=== PATIENT | male | born 1970 | race Caucasian/White ===

== ENCOUNTER 2019-06-05 13:18 | Emergency (ER) | payer OTHER, MEDICAID ==
--- NOTE | 2019-06-05 13:27 | ER Document Report ---
ED Medical Screen (RME) - General Stated Complaint: LEFT ARM INJURY Time Seen by Provider: 06/05/19 13:20 Mode of Arrival: Medic Information source: Patient Notes: 48-year-old male presents emergency department with laceration to his left forearm. Reports he was in front of a commercial push lawnmower when the belt flew off and hit him in the arm. Pressure dressing in place. EMS reports pretty deep laceration. Patient reports tetanus up-to-date. Patient received 75 mcg fentanyl without relief of symptoms. Reports it took the edge off of the pain. Patient reports he has high tolerance for pain. Takes methadone. Patient is right-handed I have greeted and performed a rapid initial assessment of this patient. A comprehensive ED assessment and evaluation of the patient, analysis of test results and completion of the medical decision making process will be conducted by additional ED providers. Dictation of this chart was performed using voice recognition software; therefore, there may be some unintended grammatical errors. - Related Data Allergies/Adverse Reactions: No Known Allergies Allergy (Unverified 06/05/19 13:21)
[2019-06-05] MEDS ORDERED: LIDOCAINE 1%/EPINEPHRINE INJ 20 ML VIAL INJ ONE (15:00)
--- NOTE | 2019-06-05 15:22 | ER Document Report ---
ED Wound - General Chief Complaint: Laceration Stated Complaint: LEFT ARM INJURY Time Seen by Provider: 06/05/19 13:20 Mode of Arrival: Medic Notes: 48-year-old [id number] male male presents to the emergency department with a laceration on his left lateral forearm sustained by of the belt of a low riding lawnmower just prior to arrival. Last tetanus 1 year ago. Patient flex and extend all of his fingers, and can flex and extend his forearm, patient is complaining of some mild tingling in his fourth and fifth digits of his left hand. TRAVEL OUTSIDE OF THE [place] IN LAST 30 DAYS: No - Related Data Allergies/Adverse Reactions: No Known Allergies Allergy (Unverified 06/05/19 13:21) Past Medical History - General Information source: Patient - Social History Smoking Status: Current Every Day Smoker Chew tobacco use (# tins/day): No Frequency of alcohol use: None Drug Abuse: Other Family History: None Patient has suicidal ideation: No Patient has homicidal ideation: No Review of Systems - Review of Systems Constitutional: No symptoms reported EENT: No symptoms reported Cardiovascular: No symptoms reported Respiratory: No symptoms reported Gastrointestinal: No symptoms reported Genitourinary: No symptoms reported Male Genitourinary: No symptoms reported Musculoskeletal: See HPI Skin: See HPI Hematologic/Lymphatic: No symptoms reported Neurological/Psychological: No symptoms reported Physical Exam - Vital signs Vitals: Temp Pulse Resp BP Pulse Ox 98.8 F 95 16 119/72 96 06/05/19 17:07 06/05/19 17:07 06/05/19 17:07 06/05/19 17:07 06/05/19 17:07 - Notes Notes: PHYSICAL EXAMINATION: Reviewed vital signs and charting by RN GENERAL: Alert, interacts well. No acute distress. HEAD: Normocephalic, atraumatic. EYES: Pupils equal and round. Extraocular movements intact. ENT: Oral mucosa moist, tongue midline. NECK: Full range of motion. Trachea midline. LUNGS: Clear to auscultation bilaterally, no wheezes, rales, or rhonchi. No respiratory distress. HEART: Regular rate and rhythm. No murmur ABDOMEN: soft, non-tender. No distention. Bowel sounds present EXTREMITIES: Moves all 4 extremities spontaneously. No edema, No cyanosis. PSYCH: Normal affect, normal mood. SKIN: Warm, dry, normal turgor. Large linear laceration approximately 4 inches long over the anterior lateral aspect of the left forearm just distal to the elbow that extends into the subcutaneous layer, a very small 3 mm area of the muscle fascia was damaged but musculature is all intact, no evidence of any tendon damage and patient has full active range of motion and strength to resistance of flexion and extension of the wrist, elbow, and all of his fingers and thumb sensation grossly intact to light touch. Course - Re-evaluation Re-evalutation: 06/05/19 19:09 Overall well-appearing, normal distal neurovascular exam with a normal motor exam. Primary closure was performed using 3 vertical mattress sutures and simple interrupted sutures. There was one large laceration approximately 4 to 5 inches long and another small at approximately 1.5 inches long distal to it. Tetanus is up-to-date. Patient tolerated procedure well. Because it was a dirty wound and such a large laceration I am going to put him antibiotic prophylaxis. I gave patient a short course of pain medication. I clearly explained the risks as patient takes methadone but he was okay with it and his methadone clinic is in [place] so we will not be taking it. I clarified and he said he was okay and was requesting it. He understands the risks. At this time patient is stable for discharge. - Vital Signs Vital signs: Temp Pulse Resp BP Pulse Ox 98.8 F 95 16 119/72 96 06/05/19 17:07 06/05/19 17:07 06/05/19 17:07 06/05/19 17:07 06/05/19 17:07 Discharge - Discharge Clinical Impression: Laceration Condition: Good Disposition: HOME, SELF-CARE Instructions: Antibiotic Ointment Protection ([facility]), Laceration Care ([facility]), Soap Cleansing ([facility]) Additional Instructions: Please return to your primary doctor, the ED, or an urgent care in 7 days for suture removal. Return immediately if you develop spreading redness around the wound, pus from the wound, worsening pain, or a fever of >101. Keep the area clean and dry. Wash gently with soap and water twice daily and cover with antibiotic ointment. Prescriptions: Oxycodone HCl [Oxy-Ir 5 mg Tablet] 5 mg PO Q6HP PRN #7 tab PRN Reason: Cephalexin Monohydrate [Keflex 500 mg Capsule] 500 mg PO QID #20 capsule
[2019-06-05] MEDS ORDERED: FENTANYL CITRATE INJ/PF 100 MCG/2 ML AMPUL IV ONE (15:25)
[2019-06-05] MEDS ORDERED: OXYCODONE HCL IR 5 MG TABLET PO ONE (16:46)
[2019-06-05 17:07] VITALS: BP 119/72
== END 2019-06-05 17:07 | disposition home or self-care (01) ==
LOC: ER 13:18
DX: S51.812A Laceration without foreign body of left forearm, initial encounter (principal); W45.8XXA Other foreign body or object entering through skin, initial encounter; F17.200 Nicotine dependence, unspecified, uncomplicated; R20.2 Paresthesia of skin
CPT/HCPCS: 99283; 96374; 12035; J3010; J3490

== ENCOUNTER 2019-06-12 09:31 | Emergency (ER) | payer OTHER, MEDICAID ==
--- NOTE | 2019-06-12 09:57 | ER Document Report ---
ED Medical Screen (RME) - General Chief Complaint: Wound Recheck Stated Complaint: SUTURE REMOVAL Time Seen by Provider: 06/12/19 09:48 Mode of Arrival: Ambulatory Information source: Patient Notes: Patient presents for suture removal to left forearm. Patient had stitches placed a week ago. Patient states that a lawnmower belt broke cutting his left forearm. Patient states that multiple pieces of rubber were removed from the laceration and he was placed on Keflex. Patient reports finishing the antibiotic 2 days ago. Patient complains of continued severe pain with swelling. I have greeted and performed a rapid initial assessment of this patient. A comprehensive ED assessment and evaluation of the patient, analysis of test results and completion of the medical decision making process will be conducted by additional ED providers. TRAVEL OUTSIDE OF THE [place] IN LAST 30 DAYS: No - Related Data Allergies/Adverse Reactions: No Known Allergies Allergy (Verified 06/12/19 09:41) Physical Exam - Vital signs Vitals: Temp Pulse Resp BP Pulse Ox 97.6 F 78 16 129/85 H 100 06/12/19 09:33 06/12/19 09:33 06/12/19 09:33 06/12/19 09:33 06/12/19 09:33 - General Notes: Sutured laceration to dorsal left forearm, proximal area of wound swollen, indurated and tender Course - Vital Signs Vital signs: Temp Pulse Resp BP Pulse Ox 97.6 F 78 16 129/85 H 100 06/12/19 09:33 06/12/19 09:33 06/12/19 09:33 06/12/19 09:33 06/12/19 09:33
--- NOTE | 2019-06-12 10:37 | RADIOLOGY REPORT (SQ) ---
EXAM DESCRIPTION: FOREARM LEFT COMPLETED DATE/TIME: 06/12/2019 10:28 am REASON FOR STUDY: L FA lac, swelling, ?FB COMPARISON: None. NUMBER OF VIEWS: Two views. TECHNIQUE: Two radiographic images acquired of the left forearm, including elbow and wrist in at [facility] one projection. LIMITATIONS: None. FINDINGS: MINERALIZATION: Normal. BONES: No acute fracture. No worrisome bone lesions. SOFT TISSUES: No obvious swelling or foreign body. OTHER: No other significant finding. IMPRESSION: NEGATIVE STUDY OF THE LEFT FOREARM. NO RADIOGRAPHIC EVIDENCE OF ACUTE INJURY. TECHNICAL DOCUMENTATION: JOB ID: [id number] [employer]- All Rights Reserved Reading location - IP/workstation name: [email or web address]
--- NOTE | 2019-06-12 12:57 | ER Document Report ---
ED General - General Chief Complaint: Wound Recheck Stated Complaint: SUTURE REMOVAL Time Seen by Provider: 06/12/19 09:48 Mode of Arrival: Ambulatory Notes: 48-year-old male presents emergency department for suture removal from his left forearm. Sutures were placed on the 22nd. Patient complains of persistent numbness to the dorsal aspect of his left forearm, denies any new numbness, denies any weakness, denies any discharge. Patient is concerned by some swelling underneath the stitches. Is afraid that that the sutures may come apart when we remove it. Took his antibiotics as directed. Denies any fevers. Denies any discharge. TRAVEL OUTSIDE OF THE [place] IN LAST 30 DAYS: No - Related Data Allergies/Adverse Reactions: No Known Allergies Allergy (Verified 06/12/19 09:41) Past Medical History - General Information source: Patient - Social History Smoking Status: Current Every Day Smoker Frequency of alcohol use: None Drug Abuse: None Family History: None Patient has suicidal ideation: No Patient has homicidal ideation: No Review of Systems - Review of Systems Constitutional: No symptoms reported Musculoskeletal: See HPI Skin: See HPI Neurological/Psychological: See HPI -: Yes All other systems reviewed and negative Physical Exam - Vital signs Vitals: Temp Pulse Resp BP Pulse Ox 97.6 F 78 16 129/85 H 100 06/12/19 09:33 06/12/19 09:33 06/12/19 09:33 06/12/19 09:33 06/12/19 09:33 Interpretation: Normal - General General appearance: Appears well, Alert In distress: None - HEENT Head: Normocephalic, Atraumatic Eyes: Normal Pupils: PERRL - Respiratory Respiratory status: No respiratory distress - Cardiovascular Pulses: Normal: Radial Normal capillary refill: Yes - Extremities Notes: Left volar forearm has 2 well approximated lacerations with minimal surrounding erythema and minimal swelling. When sutures are removed there is a small amount of dehiscence, no discharge, nontender to palpation. Course - Re-evaluation Re-evalutation: 06/12/19 12:59 Steri-Strips were applied after sutures were removed, given the small amount of erythema around the wound antibiotics were prescribed as well. - Vital Signs Vital signs: Temp Pulse Resp BP Pulse Ox 97.6 F 78 16 129/85 H 100 06/12/19 09:33 06/12/19 09:33 06/12/19 09:33 06/12/19 09:33 06/12/19 09:33 Discharge - Discharge Clinical Impression: Visit for suture removal, Encounter for wound re-check Condition: Stable Disposition: HOME, SELF-CARE Additional Instructions: Care of Steri-Strip Closure Your cut has been closed up with a special surgical tape. For this type of cut, it can replace stitches. You must protect the wound just as you would with stitches, however. For the first few days, keep the wound area completely dry. This also means you should avoid activity which makes you sweat. Do not move the area if motion stretches or wrinkles the strips. Don't allow the area to be bumped -- if bleeding occurs, the blood can make the strips loosen. The strips are somewhat waterproof. After a few days, the physician may allow you to shower. Be sure to ask if it's OK. Do not remove the tape until it peels off by itself. At that time, the wound should be healed. Prescriptions: Cephalexin Monohydrate [Keflex 500 mg Capsule] 500 mg PO Q6H 5 Days capsule
[2019-06-12 13:09] VITALS: BP 132/72
== END 2019-06-12 13:09 | disposition home or self-care (01) ==
LOC: ER 09:31
DX: S51.812D Laceration without foreign body of left forearm, subsequent encounter (principal); X58.XXXD Exposure to other specified factors, subsequent encounter; M79.89 Other specified soft tissue disorders; F17.200 Nicotine dependence, unspecified, uncomplicated
CPT/HCPCS: 99282

== ENCOUNTER 2019-06-19 02:32 | Emergency (ER) | payer OTHER, MEDICAID ==
[2019-06-19] MEDS ORDERED: KETOROLAC TROMETHAMINE 60 MG/2 ML SDV IM ONE (03:09)
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
[2019-06-19] MEDS ORDERED: LIDOCAINE 5% (700 MG) TRANSDERMAL ADH..PATCH TP ONE (03:18)
[2019-06-19 03:54] VITALS: BP 108/64
== END 2019-06-19 03:40 | disposition home or self-care (01) ==
LOC: ER 02:32
DX: M54.5 Low back pain (principal); F17.210 Nicotine dependence, cigarettes, uncomplicated
CPT/HCPCS: 96374; 99283; J1885

== ENCOUNTER 2019-07-04 19:07 | Emergency (ER) | payer OTHER, MEDICAID ==
--- NOTE | 2019-07-04 19:48 | ER Document Report ---
ED Medical Screen (RME) - General Chief Complaint: Pelvic Pain Stated Complaint: PELVIC PAIN Time Seen by Provider: 07/04/19 19:41 Mode of Arrival: Ambulatory Information source: Patient Notes: 48-year-old male presented to ED for complaint of right pelvic and scrotal pain. He states there is a bulge in his pelvis and right scrotum. He states that he was diagnosed with a hernia had a blood test and was scheduled to have the surgery but he is got to be off work for 3 weeks and he did not get the surgery done. He states he smokes 1/2 pack of cigarettes a day he denies use of alcohol or drugs. Patient is alert oriented respirations regular nonlabored speaking in full sentences. I have greeted and performed a rapid initial assessment of this patient. A comprehensive ED assessment and evaluation of the patient, analysis of test results and completion of medical decision making process will be conducted by an additional ED providers. TRAVEL OUTSIDE OF THE [place] IN LAST 30 DAYS: No - Related Data Allergies/Adverse Reactions: No Known Allergies Allergy (Verified 07/04/19 19:39) Physical Exam - Vital signs Vitals: Temp Pulse Resp BP Pulse Ox 97.6 F 87 17 117/63 97 07/04/19 19:25 07/04/19 19:25 07/04/19 19:25 07/04/19 19:25 07/04/19 19:25 Course - Vital Signs Vital signs: Temp Pulse Resp BP Pulse Ox 97.6 F 87 17 117/63 97 07/04/19 19:25 07/04/19 19:25 07/04/19 19:25 07/04/19 19:25 07/04/19 19:25
[2019-07-04 20:31] LABS: APPEARANCE,URINE CLEAR; BILIRUBIN,URINE NEGATIVE (NEGATIVE); COLOR,URINE YELLOW; GLUCOSE, URINE NEGATIVE (NEGATIVE); KETONES,URINE NEGATIVE (NEGATIVE); PROTEIN,URINE NEGATIVE (NEGATIVE); URINE SPECIFIC GRAVITY 1.025
--- NOTE | 2019-07-04 21:33 | RADIOLOGY REPORT (SQ) ---
EXAM DESCRIPTION: US SCROTUM COMPLETED DATE/TME: 07/04/2019 19:42 CLINICAL HISTORY: 48 years, Male, Bulging painful right pelvic and scrotum Findings: Right testicle measures 4.2 x 3.3 x 2.1 cm. Left testicle measures 4.2 x 2.5 x 2.2 cm. Right epididymis measures 1.0 x 0.8 x 0.6 cm. Left epididymis measures 0.9 x 0.9 x 0.7 cm. Vascular flow preserved within both testes on color and spectral Doppler imaging. Possible left varicocele. Probable hernia in the right groin but does not appear to enter the scrotum during the exam. The hernia contains bowel. IMPRESSION: Right inguinal hernia containing bowel. No torsion.
[2019-07-04 22:24] LABS: ABSOLUTE EOSINOPHILS # (AUTO) 0.1 10^3/uL (0.0-0.6); ABSOLUTE LYMPHOCYTES (AUTO) 2.7 10^3/uL (0.5-4.7); ABSOLUTE MONOCYTES (AUTO) 0.4 10^3/uL (0.1-1.4); ABSOLUTE NEUT (AUTO) 2.4 10^3/uL (1.7-8.2); BASOPHILS % (AUTO) 0.6 % (0-2); EOSINOPHILS % (AUTO) 2.6 % (0-6); HEMATOCRIT 44.4 % (37.9-51.0); MEAN CORPUSCULAR HEMOGLOBIN 29.2 pg (27.0-33.4); MEAN CORPUSCULAR HGB CONC 33.8 g/dL (32.0-36.0); MEAN CORPUSCULAR VOLUME 87 fl (80-97); MONOCYTES % (AUTO) 7.5 % (3-13); PLATELET COUNT 260 10^3/uL (150-450); RED BLOOD COUNT 5.13 10^6/uL (4.35-5.55); RED CELL DISTRIBUTION WIDTH 14.3 % (11.5-14.0); SEGMENTED NEUTROPHILS % (AUTO) 42.3 % (42-78); TOTAL CELLS COUNTED % (AUTO) 100 %; WHITE BLOOD COUNT 5.7 10^3/uL (4.0-10.5)
[2019-07-04 22:40] LABS: ALBUMIN 4.2 g/dL (3.5-5.0); ALKALINE PHOSPHATASE 49 U/L (38-126); ANION GAP 8 (5-19); ASPARTATE AMINO TRANSFERASE 30 U/L (17-59); BILIRUBIN,DIRECT 0.2 mg/dL (0.0-0.4); BILIRUBIN,TOTAL 0.4 mg/dL (0.2-1.3); BLOOD UREA NITROGEN 16 mg/dL (7-20); CALCIUM 9.9 mg/dL (8.4-10.2); CARBON DIOXIDE 29 mmol/L (22-30); CHLORIDE 104 mmol/L (98-107); GLUCOSE 88 mg/dL (75-110); POTASSIUM 4.6 mmol/L (3.6-5.0); TOTAL PROTEIN 7.1 g/dL (6.3-8.2)
--- NOTE | 2019-07-04 23:04 | ER Document Report ---
ED General - General Chief Complaint: Pelvic Pain Stated Complaint: PELVIC PAIN Time Seen by Provider: 07/04/19 19:41 Mode of Arrival: Ambulatory TRAVEL OUTSIDE OF THE [place] IN LAST 30 DAYS: No - HPI Notes: Patient describes 48-year-old male presents with right-sided inguinal hernia and pain. [place]. He has a long- standing history of right-sided inguinal hernia that he is able to reduce but bothers him when he standing for long period of time. He is presented here to be evaluated because it hurt worse than normal the day. Normal bowel movements, no obstipation or constipation, no vomiting. Throbbing burning pain, localized, nonradiating. Moderate intensity. Gradual onset. No other modifying factors, no other associated symptoms, no other provocative or palliative factors. - Related Data Allergies/Adverse Reactions: No Known Allergies Allergy (Verified 07/04/19 19:39) Past Medical History - General Information source: Patient - Social History Smoking Status: Current Every Day Smoker Chew tobacco use (# tins/day): No Frequency of alcohol use: None Drug Abuse: None Family History: None, Reviewed & Not Pertinent Patient has suicidal ideation: No Patient has homicidal ideation: No - Medical History Notes: Includes chronic right inguinal hernia Review of Systems - Review of Systems Notes: Review of systems as in the history of present illness, otherwise negative x 10 systems. Physical Exam - Vital signs Vitals: Temp Pulse Resp BP Pulse Ox 97.6 F 87 17 117/63 97 07/04/19 19:25 07/04/19 19:25 07/04/19 19:25 07/04/19 19:25 07/04/19 19:25 Interpretation: Normal - Notes Notes: General: Well developed . HEENT: Normocephalic, atraumatic. Pupils equal round reactive to light. No JVD. Chest: No trauma. Respiratory: Good air exchange, normal excursion. Cardiac: Regular rhythm. No murmurs or gallops. Abdomen: Soft, benign. Nondistended. Nontender. Back: No asymmetry or gross abnormality. Motor: Grossly normal power and tone. Neurologic: Alert, nonfocal. Cranial nerves II-12 are intact. Sensation intact. Vascular: Well perfused. Normal peripheral pulses. Skin: No petechiae or purpura. Genitalia: There is a large but easily reducible right-sided inguinal hernia that tracks into the scrotum Course - Re-evaluation Re-evalutation: 07/04/19 23:01 Patient was evaluated by the [facility] provider prior to my evaluation. Studies / interventions have been ordered by this provider and may still be pending. Well-appearing male with easily reducible right-sided inguinal hernia, no high risk features or evidence of incarceration or strangulation. Prior to my evaluation, the [facility] provider who did obtain ultrasound and labs, these are all unremarkable for acute abnormality or have expected findings. Patient is referred as an outpatient [facility], we are attempting to find a hernia belt - Vital Signs Vital signs: Temp Pulse Resp BP Pulse Ox 97.6 F 87 17 117/63 97 07/04/19 21:35 07/04/19 19:25 07/04/19 19:25 07/04/19 19:25 07/04/19 19:25 - Laboratory Result Diagrams: 07/04/19 22:00 07/04/19 22:00 Laboratory results interpreted by me: 07/04/19 07/04/19 20:01 22:00 RDW 14.3 H Lymph % (Auto) 47.0 H Urine Urobilinogen 2.0 H Discharge - Discharge Clinical Impression: Inguinal hernia Qualifiers: Obstruction and gangrene presence: without obstruction or gangrene Laterality: unilateral Recurrence: recurrent Qualified Code(s): K40.91 - Unilateral inguinal hernia, without obstruction or gangrene, recurrent Condition: Stable Disposition: HOME, SELF-CARE Instructions: Hernia ([facility]) Referrals: [facility] [Provider Group] - Follow up as needed
[2019-07-04 23:38] VITALS: BP 107/74
== END 2019-07-04 23:38 | disposition home or self-care (01) ==
LOC: ER 19:07
DX: K40.91 Unilateral inguinal hernia, without obstruction or gangrene, recurrent (principal); F17.200 Nicotine dependence, unspecified, uncomplicated
CPT/HCPCS: 36415; 76870; 80053; 81001; 85025; 93976; 99284